=== PATIENT | female | born 1960 | race Caucasian/White ===

== ENCOUNTER 2018-11-14 12:18 | Emergency (ER) | payer OTHER ==
[2018-11-14 12:27] VITALS: TEMP 98.2
[2018-11-14 15:41] VITALS: BP 112/80; PULSE 84; RESP 16
--- NOTE | 2018-11-14 15:57 | ED ---
General Adult HPI - General Chief complaint: Eye Problems Stated complaint: lt eye visual problem Time Seen by Provider: 11/14/18 14:23 Source: patient, RN notes reviewed Mode of arrival: ambulatory Limitations: no limitations - History of Present Illness Initial comments: 58-year-old female with a past medical history of ulcerative colitis presents to the emergency department for a chief complaint of floaters in the left eye. Patient states these have been ongoing for about 2 weeks. States they are black floaters only in the left visual field. Patient states that yesterday she started to have some white flashing lines in her vision in the evening. States this subsided however today she started to have some larger black floaters. States she does have some blurriness to her vision but denies any loss of visual field. Denies any sensation of curtain being over the left. Denies significant pain in the left eye but does admit to very minimal pressure. Denies pain with movement of the eye. Denies any injury to the left eye.Patient has no other complaints at this time including shortness of breath, chest pain, abdominal pain, nausea or vomiting, headache, or visual changes. - Related Data Home Medications Medication Instructions Recorded Confirmed Cyclobenzaprine [Flexeril] 10 mg PO TID PRN 11/14/18 11/14/18 Mesalamine [Lialda] 4.8 gm PO DAILY 11/14/18 11/14/18 Mometasone Furoate [Elocon] 1 applic TOPICAL BID 11/14/18 11/14/18 Previous Rx's Medication Instructions Recorded Mesalamine 4.8 gm PO DAILY #20 tablet. 11/14/18 Allergies Allergy/AdvReac Type Severity Reaction Status Date / Time Penicillins Allergy Unknown Verified 11/14/18 15:58 Sulfa (Sulfonamide Allergy Unknown Verified 11/14/18 15:58 Antibiotics) Review of Systems ROS Statement: Those systems with pertinent positive or pertinent negative responses have been documented in the HPI. ROS Other: All systems not noted in ROS Statement are negative. Past Medical History Additional Past Medical History / Comment(s): ulcerative colitis History of Any Multi-Drug Resistant Organisms: None Reported Past Surgical History: Joint Replacement, Orthopedic Surgery Additional Past Surgical History / Comment(s): cervical fusion, left ovary removed Past Psychological History: No Psychological Hx Reported Smoking Status: Former smoker Past Alcohol Use History: Rare Past Drug Use History: None Reported General Exam Limitations: no limitations General appearance: alert, in no apparent distress Head exam: Present: atraumatic, normocephalic, normal inspection Eye exam: Present: normal appearance, PERRL, EOMI. Absent: scleral icterus, conjunctival injection, periorbital swelling Expanded Eyelids: Normal Inspection: Bilateral Pupils: Regular, Round: Bilateral Sclera/Conjunctival: Normal Inspection: Bilateral Visual acuity (R) = 20/: 50 Visual acuity (L) = 20/: 70 With correction: No IOP (R) in mmH IOP (L) in mmH IOP measured with: Tonopen ENT exam: Present: normal exam, mucous membranes moist Neck exam: Present: normal inspection, full ROM. Absent: tenderness, meningismus, lymphadenopathy Respiratory exam: Present: normal lung sounds bilaterally. Absent: respiratory distress, wheezes, rales, rhonchi, stridor Cardiovascular Exam: Present: regular rate, normal rhythm, normal heart sounds. Absent: systolic murmur, diastolic murmur, rubs, gallop, clicks Neurological exam: Present: alert, oriented X3, CN II-XII intact, normal gait, other (GCS 15) Psychiatric exam: Present: normal affect, normal mood Course Vital Signs 11/14/18 11/14/18 11/14/18 12:23 14:19 15:40 Temperature 98.2 F Pulse Rate 86 80 84 Respiratory 18 18 16 Rate Blood Pressure 133/92 141/92 112/80 O2 Sat by Pulse 99 96 97 Oximetry Medical Decision Making - Medical Decision Making History was obtained by the patient. Physical exam as documented. All visual anna intact. Pressure in the eye is normal at 17. Visual acuity is 20/50 in the right eye and 20/70 in the left eye however patient does not have her glasses. This is felt to be her baseline. I did perform bedside ultrasound I do not see any obvious retinal detachment in the left eye. Spoke with Dr. Hooks who recommends having patient follow up with him tomorrow morning at 9:00 AM. Patient does agree to this and was given address. Patient also requests prescription of mesalamine. Patient is from out of town and would have to drive 2 hours home to get her prescription. States she only needs pills for 5 days. These were prescribed for her. She'll follow up with her regular doctor for future refills. Disposition Clinical Impression: Vitreous floaters of left eye Disposition: HOME SELF-CARE Condition: Good Instructions (If sedation given, give patient instructions): Blurred Vision (ED), Visual Floaters (ED) Additional Instructions: Please go to Dr. Hooks's office tomorrow morning at 9 AM. The address for his office is [address]. If you have worsening symptoms prior to this return to the emergency department. [place] [facility] [place]: Mesalamine 4.8 gm PO DAILY #20 tablet.dr Is patient prescribed a controlled substance at d/c from ED?: No Referrals: Nonstaff,Physician [Primary Care Provider] - 1-2 days Karrie Hooks MD [STAFF PHYSICIAN] - 1-2 days Time of Disposition: 16:13
== END 2018-11-14 16:41 | disposition home or self-care (01) ==
LOC: EC 12:18
DX: H43.392 Other vitreous opacities, left eye (principal); Z76.0 Encounter for issue of repeat prescription; K51.90 Ulcerative colitis, unspecified, without complications; Z87.891 Personal history of nicotine dependence; Z88.0 Allergy status to penicillin; Z88.2 Allergy status to sulfonamides; Z79.52 Long term (current) use of systemic steroids; Z79.899 Other long term (current) drug therapy
CPT/HCPCS: 99284